=== PATIENT | female | born 1955 | race Caucasian/White ===

== ENCOUNTER → 2017-04-18 | Outpatient (CLI) | payer OTHER ==
[~2017-04-18] MED LIST: ASPI325T6 PO; COLACE 100100 MG/CAP PO; CRESTOR 10MG10 MG PO; EFFE25TA PO; EFFEXOR XR75 MG/CAP PO; FOLIC ACID 40400 MCG PO; IRON324 M1 PO; NORCO 325 MG-7.1 TAB PO; VITAMIN C500 MG PO; ZESTRIL40 MG PO
== END ==
LOC: MC.RAD 08:20
DX: Z12.31 Encounter for screening mammogram for malignant neoplasm of breast (principal)

== ENCOUNTER → 2018-04-30 | Outpatient (CLI) | payer OTHER | LOC: MC.RAD 08:10 | DX: Z12.31 Encounter for screening mammogram for malignant neoplasm of breast (principal) ==

== ENCOUNTER → 2019-06-11 | Outpatient (CLI) | payer MEDICARE, OTHER | LOC: MC.RAD 09:00 | DX: Z12.31 Encounter for screening mammogram for malignant neoplasm of breast (principal) ==

== ENCOUNTER → 2020-06-24 | Outpatient (CLI) | payer MEDICARE, OTHER | LOC: MC.RAD 06-13 10:45 | DX: Z12.31 Encounter for screening mammogram for malignant neoplasm of breast (principal) ==